=== PATIENT | female | born 1995 | race Two or more races ===

== ENCOUNTER 2018-03-11 18:02 | Emergency (ER) | payer OTHER ==
[~2018-03-11] VITALS: Ht 160 cm; Wt 72.6 kg
[2018-03-11] MEDS ORDERED: OBSTETRIX DHA1 EACH (18:11)
== END 2018-03-11 21:22 | disposition home or self-care (01) ==
LOC: ER 18:02
DX: O26.851 Spotting complicating pregnancy, first trimester (principal); O34.81 Maternal care for other abnormalities of pelvic organs, first trimester; N83.292 Other ovarian cyst, left side

== ENCOUNTER 2018-05-20 17:07 | Emergency (ER) | payer OTHER ==
[~2018-05-20] VITALS: Ht 160 cm; Wt 72.6 kg
[~2018-05-20 17:07] MED LIST: OBSTETRIX DHA1 EACH
== END 2018-05-20 23:37 | disposition home or self-care (01) ==
LOC: ER 17:07
DX: O26.892 Other specified pregnancy related conditions, second trimester (principal); R10.2 Pelvic and perineal pain; Z34.02 Encounter for supervision of normal first pregnancy, second trimester

== ENCOUNTER 2018-06-17 00:32 | Inpatient (IN) | payer OTHER ==
[~2018-06-17] VITALS: Ht 160 cm; Wt 74.4 kg
== END 2018-06-21 13:45 | DRG 833 ==
LOC: OBS/DEL 00:32 → OB/GYN 02:46 → LDR 02:46 → OB/GYN 10:54
PROVIDERS: ADMIT Obstetrics & Gynecology
PROC: 4A1HX4Z Monitoring of Products of Conception, Cardiac Electrical Activity, External Approach (ICD-10-PCS; principal; 2018-06-17)
PROC: 3E0F7GC Introduction of Other Therapeutic Substance into Respiratory Tract, Via Natural or Artificial Opening (ICD-10-PCS; 2018-06-17)
DX: O26.892 Other specified pregnancy related conditions, second trimester (principal); J11.1 Influenza due to unidentified influenza virus with other respiratory manifestations; Z34.82 Encounter for supervision of other normal pregnancy, second trimester

== ENCOUNTER 2018-08-12 18:00 | Outpatient (CLI) | payer OTHER | END 2018-08-13 10:11 | disposition home or self-care (01) | LOC: OBS/DEL 18:00 | DX: O26.893 Other specified pregnancy related conditions, third trimester (principal); R10.2 Pelvic and perineal pain; Z34.03 Encounter for supervision of normal first pregnancy, third trimester ==

== ENCOUNTER 2018-10-26 12:31 | Inpatient (IN) | payer OTHER ==
[~2018-10-26] VITALS: Ht 160 cm; Wt 83.0 kg
== END 2018-11-02 11:42 | DRG 807 ==
LOC: LDR 10-31 05:31 → OB/GYN 10-31 05:31 → LDR 10-31 05:44 → OB/GYN 10-31 14:59
PROVIDERS: ADMIT Obstetrics & Gynecology
PROC: 10E0XZZ Delivery of Products of Conception, External Approach (ICD-10-PCS; principal; 2018-10-31)
PROC: 4A0HXFZ Measurement of Products of Conception, Cardiac Rhythm, External Approach (ICD-10-PCS; 2018-10-31)
DX: O80 Encounter for full-term uncomplicated delivery (principal); Z37.0 Single live birth; Z3A.40 40 weeks gestation of pregnancy